=== PATIENT | male | born 1940 | race Caucasian/White ===

== ENCOUNTER 2017-02-02 03:24 | Emergency (ER) | payer OTHER ==
[~2017-02-02] VITALS: Ht 167.6 cm; Wt 75.0 kg
[2017-02-02] MEDS ORDERED: FLUORESCEIN OPHTHALMIC 1 MG STRIP ONE (04:06)
[2017-02-02] MEDS ORDERED: PROPARACAINE OPHTH 0.5%, 15ML EACHEYE ONE (04:30)
[2017-02-02] MEDS ORDERED: FLUORESCEIN OPHTHALMIC 1 MG STRIP EACHEYE ONE (04:30)
[2017-02-02 05:30] VITALS: BP 126/71
== END 2017-02-02 07:11 | disposition home or self-care (01) ==
LOC: ED 05:23
DX: H10.213 Acute toxic conjunctivitis, bilateral (principal); Y99.0 Civilian activity done for income or pay; Z77.098 Contact with and (suspected) exposure to other hazardous, chiefly nonmedicinal, chemicals
CPT/HCPCS: 99283